=== PATIENT | female | born 1965 | race Caucasian/White ===

== ENCOUNTER 2018-02-11 21:48 | Emergency (ER) | payer OTHER ==
[~2018-02-11] VITALS: Ht 152.4 cm; Wt 61.2 kg
[2018-02-11] MEDS ORDERED: SYNTHROID88 MCG (22:10)
[2018-02-12] MEDS ORDERED: KETO10TA2 PO (01:53)
[2018-02-12] MEDS ORDERED: NORFLEX100MG PO (01:53)
== END 2018-02-12 02:07 | disposition home or self-care (01) ==
LOC: ER 21:48
DX: M54.5 Low back pain (principal)

== ENCOUNTER 2018-09-15 11:17 | Emergency (ER) | payer OTHER ==
[~2018-09-15] VITALS: Ht 152.4 cm; Wt 62.6 kg
[~2018-09-15 11:17] MED LIST: KETO10TA2 PO; NORFLEX100MG PO; SYNTHROID88 MCG
== END 2018-09-15 14:39 | disposition home or self-care (01) ==
LOC: ER 11:17
DX: S60.511A Abrasion of right hand, initial encounter (principal); W55.03XA Scratched by cat, initial encounter; Y93.89 Activity, other specified; Y92.89 Other specified places as the place of occurrence of the external cause; Y99.8 Other external cause status

== ENCOUNTER → 2021-01-28 | Emergency (ER) | payer OTHER ==
[~2021-01-28] VITALS: Ht 152.4 cm; Wt 59.0 kg
== END | disposition left against medical advice (07) ==
LOC: ER 20:47
DX: R10.11 Right upper quadrant pain (principal); R10.811 Right upper quadrant abdominal tenderness

== ENCOUNTER 2022-03-22 23:21 | Emergency (ER) | payer OTHER ==
[~2022-03-22] VITALS: Ht 152.4 cm; Wt 59.0 kg
[2022-03-22] MEDS ORDERED: VITAMIN D-40010 MCG (23:40)
== END 2022-03-23 07:47 ==
LOC: ER 23:21
DX: R20.2 Paresthesia of skin (principal); E03.9 Hypothyroidism, unspecified; Z88.0 Allergy status to penicillin

== ENCOUNTER 2022-08-30 23:03 | Emergency (ER) | payer OTHER ==
[~2022-08-30] VITALS: Ht 152.4 cm; Wt 59.0 kg
[~2022-08-30 23:03] MED LIST changes: +VITAMIN D-40010 MCG
[2022-08-30] MEDS ORDERED: CHILDREN'S ASPI81 MG PO (23:17)
[2022-08-31] MEDS ORDERED: MEDROL8 MG PO (01:44)
[2022-08-31] MEDS ORDERED: BENADRYL25 MG PO (01:44)
== END 2022-08-31 01:59 ==
LOC: ER 23:03
DX: T78.1XXA Other adverse food reactions, not elsewhere classified, initial encounter (principal); R60.9 Edema, unspecified; X58.XXXA Exposure to other specified factors, initial encounter; Z88.0 Allergy status to penicillin

== ENCOUNTER 2024-01-17 18:18 | Inpatient (IN) | payer OTHER ==
[~2024-01-17] VITALS: Ht 152.4 cm; Wt 57.2 kg
[~2024-01-17 18:18] MED LIST changes: +BENADRYL25 MG PO; +CHILDREN'S ASPI81 MG PO; +DICLOFENAC SODI50 MG PO; +MEDROL8 MG PO
--- NOTE | 2024-01-17 19:20 | NUR ---
PTE ALERTA Y ORIENTADA X3 EN [place] DE FAMILIAR REFIERE VENIR A KATHY DEBIDO A QUE LA MISMA DE JOSH A DEL REAL CASA SINTION DE [place] PRESION EN EL PECHO Y EN ESPALDA MEDIA AREA CENTRAL, PTE EXPRESA QUE EN OCACIONES SE REID SENTIDO MAREADA. SE ELMA S/V Y SE REALIZA EKG EL CUAL ES PRESENTADO A DR BANKS Y EL MISMO INDICA QUE NO HAY NINGUNA ERMERGENCIA. SE COLOCA A PTE EN FAST TRACK.
--- NOTE | 2024-01-17 19:36 | NUR ---
SE REALIZA A[place]RIA EKG EL CUAL ES EVALUADO POR DR PIERRE Y EL MISMO DETERMINA QUE SE UBIQUE A PTE EN AREA DE CRITICO.
[2024-01-17] MEDS ORDERED: ASPIRIN 325 MG TABLET PO ONE (20:00)
[2024-01-17] MEDS ORDERED: TICAGRELOR 90 MG TABLET PO ONE (20:00)
[2024-01-17] MEDS ORDERED: NITROGLYCERIN 250 ML IV SCH (20:00)
[2024-01-17] MEDS ORDERED: NITROGLYCERIN IN 5 % DEXTROSE 250 ML IV SCH (20:00)
[2024-01-17 20:02] LABS: HEMOGLOBIN 14.8 g/dL (12.0-15.00); MEAN CELL VOLUME 87.6 fL (80.00-100.00); MEAN CORPUSCULAR HGB CONC 34.3 g/dl (32.0-36.0); PLATELET COUNT 316 K/uL (150-450); RED BLOOD COUNT 4.91 M/uL (4.00-6.00); RED CELL DISTRIBUTION WIDTH 13.8 % (11.5-14.5)
--- NOTE | 2024-01-17 20:07 | NUR ---
WILEY MCCORMICK ORIENTA A PTE SOBRE TRATAMIENTO E INSTRUCCIONES A SEGUIR, SUJIT REFIERE ENTENDER. SE COLECTA MUESTRAS, SE CANALIZA Y SE ADMINISTRA MEDICAMENTO MARCO ORDEN MEDICA
[2024-01-17] MEDS ORDERED: ASPIRIN 325 MG TABLET.EC PO ONE (20:10)
[2024-01-17] MEDS ORDERED: NITROGLYCERIN IN 5 % DEXTROSE 50 MG/250 ML BOTTLE IV ONE (20:10)
[2024-01-17 20:22] LABS: INR < 0.93; PARTIAL THROMBOPLASTIN TIME 28.8 SECONDS (22.0-34.0); PROTHROMBIN TIME 9.8 SECONDS (9.0-11.5)
[2024-01-17 20:54] LABS: ALBUMIN 4.7 gm/dL (3.4-5.0); BILIRUBIN TOTAL 0.36 mg/dL (0.3-1.2); CALCIUM 9.7 mg/dL (8.5-10.1); CREATININE SERUM 0.69 mg/dL (0.55-1.02); GFR 87.08; GLOBULINA 4.2 G/DL (2.4-3.5); POTASSIUM 3.62 mEq/L (3.5-5.1); TOTAL PROTEIN 8.9 gm/dL (6.4-8.2)
[2024-01-17 21:00] LABS: TSH 6.25 uIU/mL (0.358-3.74)
--- NOTE | 2024-01-17 23:09 | NUR ---
SE RECIBE PACIENTE FEMENINA ALERTA Y ORIENTADA X3, EN CAMA #2 CON BARANDAS ELEVADAS. CONECTADA A MONITOR CARDIACO Y OXIEMTRIA DE PULSO. CANALIZADA EN BRAZO DERECHO X2 CON ANGIO #20 PATENTES LIBRES DE EDEMA Y ENROJECIMIENTO. SE OBSERVA POR CAMBIOS.
[2024-01-17] MEDS ORDERED: 0.9 % SODIUM CHLORIDE 1,000 ML IV SCH (23:45)
[2024-01-17] MEDS ORDERED: ONDANSETRON HCL 4 MG in 0.9 % SODIUM CHLORIDE 50 ML IV PRN (23:45)
[2024-01-17] MEDS ORDERED: ACETAMINOPHEN 500 MG GEL..CAP PO PRN (23:45)
[2024-01-18 01:27] LABS: URINE APPEARANCE Clear; URINE BILIRRUBIN Negative (NEGATIVE); URINE BLOOD Trace; URINE COLOR Yellow; URINE GLUCOSE Negative (NEGATIVE); URINE LEUKOCYTE Negative; URINE NITRATE Negative; URINE PROTEIN Negative (NEGATIVE); URINE UROBILINOGEN 0.2 E.U./dl
[2024-01-18 01:30] LABS: URINE BACTERIA 11.3 uL (0.0-1933); URINE RBC 14.6 uL (0.0-20.8)
[2024-01-18 01:39] LABS: URINE EPITHELIAL CELLS 0.3 uL (0.0-38.8); URINE WBC 0.6 uL (0.0-23.2)
[2024-01-18] MEDS ORDERED: LEVOTHYROXINE SODIUM 88 MCG TABLET PO SCH (06:00)
[2024-01-18] MEDS ORDERED: ENOXAPARIN SODIUM 40 MG/0.4 ML SYRINGE SUBCUTANEO SCH (09:00)
[2024-01-18] MEDS ORDERED: FAMOTIDINE/PF 20 MG in 0.9 % SODIUM CHLORIDE 8 ML IV PUSH SCH (09:00)
[2024-01-18] MEDS ORDERED: ATORVASTATIN CALCIUM 40 MG TABLET PO SCH (09:00)
[2024-01-18] MEDS ORDERED: ASPIRIN 81 MG TAB.CHEW PO SCH (09:00)
[2024-01-18] MEDS ORDERED: LOSARTAN POTASSIUM 25 MG TABLET PO SCH (20:38)
[2024-01-19 04:58] LABS: HEMATOCRIT 39.4 % (36.0-45.00); HEMOGLOBIN 13.6 g/dL (12.0-15.00); MEAN CORPUSCULAR HEMOGLOBIN 30.2 pg (27.00-32.0); MEAN CORPUSCULAR HGB CONC 34.4 g/dl (32.0-36.0); PLATELET COUNT 285 K/uL (150-450); RED BLOOD COUNT 4.48 M/uL (4.00-6.00); RED CELL DISTRIBUTION WIDTH 13.8 % (11.5-14.5)
[2024-01-19 05:37] LABS: ALBUMIN 3.5 gm/dL (3.4-5.0); BILIRUBIN TOTAL 0.45 mg/dL (0.3-1.2); CALCIUM 9.2 mg/dL (8.5-10.1); CREATININE SERUM 0.81 mg/dL (0.55-1.02); GFR 72.37; GLOBULINA 3.5 G/DL (2.4-3.5)
[2024-01-19] MEDS ORDERED: METOPROLOL SUCCINATE 25 MG TAB.SR.24H PO SCH (12:00)
[2024-01-19] MEDS ORDERED: LIPITOR40 M1 PO (13:37)
[2024-01-19] MEDS ORDERED: ADULT ASPIRIN81 MG PO (13:37)
[2024-01-19] MEDS ORDERED: TOPROL XL25 M1 PO (13:37)
[2024-01-19] MEDS ORDERED: PANTOPRAZOLE SO40 MG PO (13:37)
[2024-01-19] MEDS ORDERED: LEVOTHYROXINE88 MCG PO (13:38)
[2024-01-20] MEDS ORDERED: PANTOPRAZOLE SODIUM 40 MG TABLET.DR PO SCH (09:00)
== END 2024-01-19 22:14 | disposition home or self-care (01) | DRG 311 ==
LOC: ER 18:19 → ICU-2 23:42
PROVIDERS: General Practice; ADMIT Internal Medicine; ATTEND Internal Medicine
PROC: B246ZZZ Ultrasonography of Right and Left Heart (ICD-10-PCS; 2024-01-17)
PROC: 4A12X4Z Monitoring of Cardiac Electrical Activity, External Approach (ICD-10-PCS; 2024-01-17)
PROC: 4A02XM4 Measurement of Cardiac Total Activity, External Approach (ICD-10-PCS; principal; 2024-01-18)
PROC: 3E073KZ Introduction of Other Diagnostic Substance into Coronary Artery, Percutaneous Approach (ICD-10-PCS; 2024-01-18)
DX: I20.0 Unstable angina (principal); I11.9 Hypertensive heart disease without heart failure; E03.9 Hypothyroidism, unspecified; Z74.01 Bed confinement status

== ENCOUNTER 2024-08-05 21:09 | Emergency (ER) | payer OTHER ==
[~2024-08-05] VITALS: Ht 152.4 cm; Wt 54.4 kg
[~2024-08-05 21:09] MED LIST changes: +ADULT ASPIRIN81 MG PO; +LEVOTHYROXINE88 MCG PO; +LIPITOR40 M1 PO; +PANTOPRAZOLE SO40 MG PO; +TOPROL XL25 M1 PO
[2024-08-05] MEDS ORDERED: SYNTHROID75 MCG PO (21:54)
== END 2024-08-06 00:24 | disposition home or self-care (01) ==
LOC: ER 21:12
DX: I10 Essential (primary) hypertension (principal); Z88.0 Allergy status to penicillin